=== PATIENT | female | born 1970 | race Caucasian/White ===

== ENCOUNTER 2017-01-02 20:45 | Emergency (ER) | payer BC ==
[2017-01-02] MEDS ORDERED: Sodium Chloride 0.9% 1,000 ML IV ONE (20:58)
[2017-01-02] MEDS ORDERED: Sodium Chloride 0.9% 10 ML Syringe FLUSH PRN (20:58)
[2017-01-02] MEDS ORDERED: Adenosine 6 MG/2 ML SDV IVPUSH ONE ×2 (20:58→21:25)
[2017-01-02 21:49] LABS: CHLORIDE,CL 102 mmol/L (98-107); SODIUM,NA 140 mmol/L (136-145)
--- NOTE | 2017-01-02 21:55 | EDM.PDOC ---
ED HPI GENERAL MEDICAL PROBLEM - General Chief Complaint: Cardiovascular Problem Stated Complaint: rapid heart rate Time Seen by Provider: 01/02/17 20:56 Source of Information: Reports: Patient History Limitations: Reports: No Limitations - History of Present Illness INITIAL COMMENTS - FREE TEXT/NARRATIVE: Sarah comes in this evening with complaints of SVT. She states she began feeling rapid heartbeat while she was watching TV on the couch with her significant other. She has a history of this irregular heart rhythm. She states she is having some chest pressure and a little bit of shortness of breath. Along with this she does complain of some throat burning. Patient denies any abdominal pain nausea vomiting. She also denies having any irregular bowel or bladder habits she also denies having any blood in her urine or stool. She has been here on prior occasions when we have had to give her chemical cardioversion with adenosine. She denies fever, chills, recent illness, denies having any recent contact with anyone ill or anyone out of the country. Onset: Today, Sudden Onset Time: 21:00 Location: Reports: Chest Severity: Moderate - Related Data Allergies Allergy/AdvReac Type Severity Reaction Status Date / Time No Known Allergies Allergy Verified 01/02/17 21:29 Home Meds: Home Meds Gabapentin [Gabapentin] 300 cap PO BEDTIME 01/14/14 [History] Gabapentin [Neurontin] 300 mg PO ACBRK 01/14/14 [History] Zolpidem [Ambien] 10 mg PO BEDTIME 01/14/14 [History] traMADol HCl [Tramadol HCl] 2 tab PO BID 01/14/14 [History] Past Medical History Cardiovascular History: Reports: Arrhythmia, Other (See Below) Other Cardiovascular History: Recurrent episodes of SVT Psychiatric History: Reports: Addiction, Other (See Below) Other Psychiatric History: Recovering alcoholic - Past Surgical History GI Surgical History: Reports: Cholecystectomy Social & Family History - Tobacco Use Smoking Status *Q: Current Every Day Smoker Years of Tobacco use: 20 Packs/Tins Daily: 0.8 Second Hand Smoke Exposure: No - Caffeine Use Caffeine Use: Reports: Coffee Caffeine Use Comment: one cup of coffee every morning. - Alcohol Use Days Per Week of Alcohol Use: 0 (Recovering alcoholic) - Recreational Drug Use Recreational Drug Use: No ED ROS GENERAL - Review of Systems Review Of Systems: See Below Constitutional: Reports: No Symptoms HEENT: Reports: No Symptoms Respiratory: Reports: Shortness of Breath Cardiovascular: Reports: Chest Pain Endocrine: Reports: No Symptoms GI/Abdominal: Reports: No Symptoms : Reports: No Symptoms Musculoskeletal: Reports: No Symptoms Skin: Reports: No Symptoms Neurological: Reports: No Symptoms Psychiatric: Reports: No Symptoms Hematologic/Lymphatic: Reports: No Symptoms Immunologic: Reports: No Symptoms ED EXAM, GENERAL - Physical Exam Exam: See Below Exam Limited By: No Limitations General Appearance: Alert, WD/WN, Mild Distress Eye Exam: Bilateral Eye: EOMI, PERRL Ears: Normal TMs Throat/Mouth: Normal Inspection, Normal Oropharynx Head: Atraumatic Neck: Normal Inspection Respiratory/Chest: No Respiratory Distress, Lungs Clear, Normal Breath Sounds Cardiovascular: Tachycardia (svt on ekg) GI/Abdominal: Normal Bowel Sounds, Soft, Non-Tender Extremities: Normal Inspection, Normal Range of Motion, Non-Tender, No Pedal Edema Neurological: Alert, Oriented, CN II-XII Intact, Normal Cognition, Normal Gait, Normal Reflexes, No Motor/Sensory Deficits Psychiatric: Normal Affect, Anxious Skin Exam: Warm, Dry, Intact Lymphatic: No Adenopathy EKG INTERPRETATION EKG Date: 01/02/17 Time: 21:03 Rhythm: Other (SVT) Rate (Beats/Min): 157 [place]: Normal P-Wave: Absent QRS: Other (narrow) ST-T: Depressed QT: Normal Comparison: No Change EKG Interpretation Comments: Supraventricular tachycardia Pattern consistent with pulmonary disease Right ventricular hypertrophy Moderate ST depression Abnormal ECG Course - Orders/Labs/Meds Orders: Active Orders 24 hr Category Date Time Status EKG 12 Lead [EKG Documentation Completion] [RC] ROUTINE Care 01/02/17 20:58 Ordered BASIC METABOLIC PANEL,BMP [CHEM] Stat Lab 01/02/17 21:15 Received CK W CKMB [CHEM] Stat Lab 01/02/17 21:15 Received TROPONIN I [CHEM] Stat Lab 01/02/17 21:15 Received TSH ULTRASENSITIVE [CHEM] Stat Lab 01/02/17 21:15 Received Sodium Chloride 0.9% [Normal Saline] 1,000 ml Med 01/02/17 20:58 Active IV ONETIME Sodium Chloride 0.9% [Saline Flush] Med 01/02/17 20:58 Active 10 ml FLUSH ASDIRECTED PRN Saline Lock Insert [OM.PC] Routine Oth 01/02/17 20:58 Ordered Medication Orders Sodium Chloride (Normal Saline) 1,000 mls @ 999 mls/hr IV ONETIME ONE Stop: 01/02/17 21:58 Last Admin: 01/02/17 21:19 Dose: 999 mls/hr Sodium Chloride (Saline Flush) 10 ml FLUSH ASDIRECTED PRN PRN Reason: Keep Vein Open Labs: Laboratory Tests 01/02/17 Range/Units 21:15 PT 9.9 (9.8-11.8) SEC INR 0.9 L (2.0-3.5) Meds: Medications Generic Name Dose Route Start Last Admin Trade Name Freq PRN Reason Stop Dose Admin Sodium Chloride 1,000 mls @ 999 mls/hr 01/02/17 20:58 01/02/17 21:19 Normal Saline IV 01/02/17 21:58 999 mls/hr ONETIME ONE Administration Sodium Chloride 10 ml 01/02/17 20:58 Saline Flush FLUSH ASDIRECTED PRN Keep Vein Open Discontinued Medications Generic Name Dose Route Start Last Admin Trade Name Freq PRN Reason Stop Dose Admin Adenosine 6 mg 01/02/17 20:58 01/02/17 21:20 Adenocard IVPUSH 01/02/17 20:59 6 mg NOW ONE Administration Adenosine 12 mg 01/02/17 21:25 Adenocard IVPUSH 01/02/17 21:26 NOW ONE - Re-Assessments/Exams Free Text/Narrative Re-Assessment/Exam: 01/02/17 22:00 ECG ordered for patient upon arrival with complaints of SVT. RN did start an 20- gauge IV in the right before meals we did start her on normal saline with 6 mg of adenosine given and flushed immediately. patient did cardiovert immediately with her rate dropping down into the low 100s and a sinus rhythm and is currently in the mid 90s. Patient tolerated the procedure without any complaints or problems. She now feels like she did before she went into SVT and has no complaints. She is resting comfortably. Departure - Departure Time of Disposition: 22:34 Disposition: Home, Self-Care 01 Condition: Good Clinical Impression: Supraventricular tachycardia Instructions: Paroxysmal Supraventricular Tachycardia, [id number] Referrals: Arti Desai DO [Primary Care Provider] - Additional Instructions: Follow-up with your primary provider as symptoms warrant. You should follow up with the ceramics artist or a cardiac spring tester. You should be evaluated for a cardiac ablation. If you have any questions or concerns you can call us at any time. - Problem List & Annotations (1) Supraventricular tachycardia SNOMED Code(s): 3760183 Code(s): I47.1 - SUPRAVENTRICULAR TACHYCARDIA Status: Acute Priority: Medium Current Visit: Yes - Problem List Review Problem List Initiated/Reviewed/Updated: Yes - My Orders Last 24 Hours: My Active Orders 01/02/17 20:58 EKG 12 Lead [EKG Documentation Completion] [RC] ROUTINE Sodium Chloride 0.9% [Normal Saline] 1,000 ml IV ONETIME Sodium Chloride 0.9% [Saline Flush] 10 ml FLUSH ASDIRECTED PRN Saline Lock Insert [OM.PC] Routine 01/02/17 21:15 BASIC METABOLIC PANEL,BMP [CHEM] Stat CK W CKMB [CHEM] Stat TROPONIN I [CHEM] Stat TSH ULTRASENSITIVE [CHEM] Stat - Assessment/Plan Last 24 Hours: My Active Orders 01/02/17 20:58 EKG 12 Lead [EKG Documentation Completion] [RC] ROUTINE Sodium Chloride 0.9% [Normal Saline] 1,000 ml IV ONETIME Sodium Chloride 0.9% [Saline Flush] 10 ml FLUSH ASDIRECTED PRN Saline Lock Insert [OM.PC] Routine 01/02/17 21:15 BASIC METABOLIC PANEL,BMP [CHEM] Stat CK W CKMB [CHEM] Stat TROPONIN I [CHEM] Stat TSH ULTRASENSITIVE [CHEM] Stat Assessment:: SVT Plan: Follow-up with your primary provider as symptoms warrant. You should follow up with the ceramics artist or a cardiac spring tester. You should be evaluated for a cardiac ablation. If you have any questions or concerns you can call us at any time.
[2017-01-02 23:03] VITALS: BP 128/81
== END 2017-01-02 22:47 | disposition home or self-care (01) ==
LOC: VM.ED 20:45
DX: I47.1 Supraventricular tachycardia (principal); F17.210 Nicotine dependence, cigarettes, uncomplicated
CPT/HCPCS: 80048; 82550; 84443; 84484; 85610; 93005; 96365; 96375; 99285; J0153; J7030